=== PATIENT | female | born 1975 | race African-American/Black ===

== ENCOUNTER 2017-03-07 04:54 | Emergency (ER) | payer SELFPAY ==
[2017-03-07] MEDS ORDERED: PREDNISONE 20 MG TABLET PO ONE (05:46)
--- NOTE | 2017-03-07 05:49 | ER Document Report ---
ED Skin Rash/Insect Bite/Abscs - General Mode of Arrival: Ambulatory Information source: Patient TRAVEL OUTSIDE OF THE [place] IN LAST 30 DAYS: No - HPI Patient complains to provider of: Skin rash/lesion, Possible insect bite Onset: Other - see HPI note Onset/Duration: Sudden Quality of rash: Itchy Identify cause: No Similar symptoms previously: No Recently seen / treated by doctor: No - General Chief Complaint: Rash Stated Complaint: POSSIBLE RASH Notes: Patient is a 42 year old female presenting to the ED for a rash or possible insect bites. Patient states she started going to the gym 3 days ago. Patient's rash appeared 2 days ago. Patient complains of dark spots on her skin that are very itchy. Patient has started treating her house, bed, clothes with bed bug spray. Patient states that she thinks she may have scabies or bed bugs. Patient has not seen any bugs. Patient states she has taken 5 showers in the last 4 hours; the water helps relieve the patient's itch. Patient has no known allergies. (NAIF CAPPS) - Related Data Allergies/Adverse Reactions: No Known Allergies Allergy (Unverified 03/07/17 04:56) Past Medical History - General Information source: Patient - Social History Smoking Status: Unknown if Ever Smoked Family History: None Patient has suicidal ideation: No Patient has homicidal ideation: No - Past Medical History Cardiac Medical History: Reports: Hx Hypertension Surgical Hx: Negative - Immunizations Hx Diphtheria, Pertussis, Tetanus Vaccination: Yes Review of Systems - Review of Systems Constitutional: No symptoms reported EENT: No symptoms reported Cardiovascular: No symptoms reported Respiratory: No symptoms reported Gastrointestinal: No symptoms reported Genitourinary: No symptoms reported Female Genitourinary: No symptoms reported Musculoskeletal: No symptoms reported Skin: See HPI Hematologic/Lymphatic: No symptoms reported Neurological/Psychological: No symptoms reported -: Yes All other systems reviewed and negative Physical Exam - Vital signs Interpretation: Normal - General General appearance: Appears well, Alert In distress: Mild - HEENT Head: Normocephalic, Atraumatic Eyes: Normal Pupils: PERRL Mucous membranes: Moist - Respiratory Respiratory status: No respiratory distress - Cardiovascular Rhythm: Regular - Abdominal Inspection: Normal - Back Back: Normal - Extremities General upper extremity: Normal ROM, Normal strength General lower extremity: Normal ROM, Normal strength - Neurological Neuro grossly intact: Yes Cognition: Normal Orientation: AAOx4 [place] Coma Scale Eye Opening: Spontaneous [place] Coma Scale Verbal: Oriented [place] Coma Scale Motor: Obeys Commands [place] Coma Scale Total: 15 Speech: Normal Sensory: Normal - Psychological Associated symptoms: Normal affect, Normal mood - Skin Skin Temperature: Warm Skin Moisture: Dry Skin Color: Other - A couple small areas on bilateral upper extremities which could be bite saavedra from some sort of a insect; small amounts of localized redness but no cellulitis, crepitus, necrosis, petechiae, or purpura. Course - Re-evaluation Re-evalutation: 03/07/17 05:50 Presents a month spell with chief complaint rash on her arms. She states she started as a new gym the other day was afraid she may be got scabies or bedbugs. She's got lower bites on her arm which little erythematous around and has not seen any insects or bites. Has not had any exposure to anything that she is aware of. No new soaps medications detergents difficulty breathing swallowing trismus stridor or drooling or shortness of breath. No GI upset. On physical examination she's got some couple small areas on bilateral upper extremities which could be bite saavedra from some sort of a insect there is little bit a localized redness but no cellulitis crepitus necrosis petechiae or purpura. This time after discussion with her and started on prednisone and I'm going to start her on Elimite in case this is scabies. She doesn't have it in between the fingers or toes yet. Given her family doctor for close follow-up and discuss reasons for ED return sooner (ARTI HENDERSON) - Vital Signs Vital signs: Temp Pulse Resp BP Pulse Ox 97.9 F 86 16 142/78 H 100 03/07/17 06:03 03/07/17 06:03 03/07/17 06:03 03/07/17 06:03 03/07/17 06:03 Discharge - Discharge Clinical Impression: acute rash Condition: Stable Disposition: HOME, SELF-CARE Additional Instructions: Acute rash You have developed a rash on your bilateral upper extremity arm area. At this time and is not definitive what is causing it. It could be bed bugs it could be scabies we discussed treating you for scabies also treated with prednisone in urine again [id number] Benadryl for the itch. Recommend you wash all your sheets clothing bedding any carpets with hot water. In terms of going to the gym make sure you're taking a still cleaner tube solution with urine cleaning off the machines before and after use. I given your family doctor for follow-up and discuss reasons for ED return sooner Prescriptions: Permethrin [Elimite] 60 gm TP ONCE PRN #1 cream.gm. PRN Reason: Referrals: [facility] [Provider Group] - Follow up in 3-5 days Scribe Attestation: 03/07/17 05:54 I personally performed the services described in the documentation reviewed the documentation recorded by my scribe in my presence and it accurately and completely records my words and actions (ARTI HENDERSON) Scribe Documentation - Scribe Written by Scribe:: Naif Capps 03/07/17 06:00 acting as scribe for :: Candido
[2017-03-07 06:05] VITALS: BP 142/78
== END 2017-03-07 06:05 | disposition home or self-care (01) ==
LOC: ER 04:54
DX: R21 Rash and other nonspecific skin eruption (principal)
CPT/HCPCS: 99282; J7512

== ENCOUNTER 2017-12-21 14:41 | Emergency (ER) | payer SELFPAY ==
--- NOTE | 2017-12-21 15:11 | ER Document Report ---
ED Flu Like - General Chief Complaint: Flu Symptoms Stated Complaint: FLU LIKE SYMPTOMS Time Seen by Provider: 12/21/17 14:57 Notes: Patient is a 42 year old female who presents to the ED complaining of sinus congestion with left ear pressure, body aches for 3-4 days and shortness of breath with left sided chest wall pain since yesterday. She admits to a history of asthma and has been using her inhaler without any relief of her exertional shortness of breath, worse with inspiration, non productive cough, denies fevers. Left ear pressure has been on/off for months and is worse with her seasonal allergies. She has not been taking anything over the counter for her symptoms. Admits to multiple sick contacts at work. Did not receive a flu vaccine this year. current smoker TRAVEL OUTSIDE OF THE [place] IN LAST 30 DAYS: No - Related Data Allergies/Adverse Reactions: No Known Allergies Allergy (Unverified 03/07/17 04:56) Past Medical History - Social History Smoking Status: Current Every Day Smoker Family History: None - Past Medical History Cardiac Medical History: Reports: Hx Hypertension Renal/ Medical History: Denies: Hx Peritoneal Dialysis - Immunizations Hx Diphtheria, Pertussis, Tetanus Vaccination: Yes Review of Systems - Review of Systems Constitutional: No symptoms reported EENT: See HPI Cardiovascular: No symptoms reported Respiratory: See HPI Gastrointestinal: No symptoms reported Musculoskeletal: No symptoms reported -: Yes All other systems reviewed and negative Physical Exam - Vital signs Vitals: Temp Pulse Resp BP Pulse Ox 98.5 F 107 H 18 144/88 H 100 12/21/17 14:47 12/21/17 14:47 12/21/17 14:47 12/21/17 14:47 12/21/17 14:47 - Notes Notes: PHYSICAL EXAM GENERAL: Alert, interacts well. HEENT: NCAT, pale conjunctiva, extraocular movements intact, pupils PERRL. external ear normal, no evidence of external auditory canal tenderness, blood/ drainage, cerumen impaction, TM intact without evidence of effusion, bulging, injection, MMM, Uvula midline. Airway patent. No evidence of tonsillar enlargement, peritonsillar abscess, retropharyngeal abscess. LUNGS: Clear to auscultation bilaterally, no wheezes, rales, or rhonchi. No respiratory distress. HEART: Regular rate and rhythm. No murmurs, gallops, or rubs. EXTREMITIES: Moves all 4 extremities spontaneously. No edema, radial and dorsalis pedis pulses 2/4 bilaterally. No cyanosis. NEUROLOGICAL: Alert and oriented x4. Normal speech. PSYCH: Normal affect, normal mood. SKIN: Warm, dry, normal turgor. No rashes or lesions noted. Course - Re-evaluation Re-evalutation: 12/21/17 16:06 Patient is a 42-year-old female is hemodynamically stable, no acute distress and afebrile. D-dimer 0.50, with normal EKG without evidence of ST elevations concerning for pericarditis, any evidence of right heart strain concerning for PE. Patient able to ambulate with mild tachypnea and desat to 90% with recovery to 99% once seated, HR highest was 107. Patient admits to pleuritic chest pain and left lower back pain that is not reproducible to palpation. Rapid influenza is negative. Will administer neb treatment and ambulate again 12/21/17 17:21 symptoms improved after abluterol treatment patient able to ambulate with low 50 saturations 98%. States that her, shortness of breath is completely resolved. Stable for discharge home and given strict return precautions - Vital Signs Vital signs: Temp Pulse Resp BP Pulse Ox 98.3 F 89 16 133/70 H 98 12/21/17 17:37 12/21/17 17:37 12/21/17 17:37 12/21/17 17:37 12/21/17 17:37 - Diagnostic Test Radiology reviewed: Image reviewed, Reports reviewed Discharge - Discharge Clinical Impression: Prehypertension URI (upper respiratory infection) Qualifiers: URI type: unspecified viral URI Qualified Code(s): J06.9 - Acute upper respiratory infection, unspecified Condition: Good Disposition: HOME, SELF-CARE Additional Instructions: Your symptoms are most likely due to a viral infection it should resolve over the next 7-14 days. You should take [id number] guanfacine per bottle instructions to help thin the mucus. For nasal congestion: I would recommend that you get [id number] oxymetazoline also known is afrin. Use only per bottle instructions and be sure to never use this for more than 3 days if you can develop severe rebound congestion. You can also use pseudophedrine. You may also use tylenol or ibuprofen as needed for aches and thorat discomfort. Please be sure to drink plenty of fluids and get rest. Return to the emergency department he began having difficulty breathing, chest pain, persistent vomiting , or any other symptoms that are concerning to you. Forms: Elevated Blood Pressure, Return to Work Referrals: JUAN FRANCOIS MD [ACTIVE STAFF] - Follow up in 1 week
[2017-12-21] MEDS ORDERED: IBUPROFEN 800 MG TABLET PO ONE (15:41)
--- NOTE | 2017-12-21 15:56 | RADIOLOGY REPORT (SQ) ---
EXAM DESCRIPTION: CHEST PA/LAT COMPLETED DATE/TIME: 12/21/2017 3:47 pm REASON FOR STUDY: SOB, cough COMPARISON: 11/04/2013 EXAM PARAMETERS: NUMBER OF VIEWS: two views TECHNIQUE: Digital Frontal and Lateral radiographic views of the chest acquired. RADIATION DOSE: NA LIMITATIONS: none FINDINGS: LUNGS AND PLEURA: No opacities, masses or pneumothorax. No pleural effusion. MEDIASTINUM AND HILAR STRUCTURES: No masses or contour abnormalities. HEART AND VASCULAR STRUCTURES: Heart normal size. No evidence for failure. BONES: No acute findings. HARDWARE: None in the chest. OTHER: No other significant finding. IMPRESSION: NO SIGNIFICANT RADIOGRAPHIC FINDING IN THE CHEST. TECHNICAL DOCUMENTATION: JOB ID: [id number] [employer]- All Rights Reserved
[2017-12-21 16:04] LABS: A TYPE INFLUENZA AG NEGATIVE (NEGATIVE); B INFLUENZA AG NEGATIVE (NEGATIVE)
[2017-12-21] MEDS ORDERED: ALBUTEROL SULFATE 0.083% NEB 2.5 MG/3 ML AMPUL NEB ONE (16:20)
[2017-12-21 17:46] VITALS: BP 133/70
--- NOTE | 2017-12-21 18:27 | EKG REPORT ---
SEVERITY:- NORMAL ECG - SINUS RHYTHM : Confirmed by: Moe Whitten MD 21-Dec-2017 18:26:28
== END 2017-12-21 17:38 | disposition home or self-care (01) ==
LOC: ER 14:41
DX: J06.9 Acute upper respiratory infection, unspecified (principal); R03.0 Elevated blood-pressure reading, without diagnosis of hypertension; R09.81 Nasal congestion; F17.200 Nicotine dependence, unspecified, uncomplicated
CPT/HCPCS: 36415; 71046; 85379; 87804; 93005; 93010; 94640; 99284